=== PATIENT | female | born 1950 | race African-American/Black ===

== ENCOUNTER 2021-03-26 10:53 | Emergency (ER) | payer MEDICARE, SELFPAY ==
[~2021-03-26] VITALS: Ht 167.6 cm; Wt 59.0 kg
[2021-03-26 12:45] LABS: BASOPHILS % 0.3 % (0.0-2.0); HEMOGLOBIN. 10.5 g/dL (12.0-16.0); LYMPHOCYTES % 8.5 % (20.0-50.0); MEAN CORPUSCULAR HEMOGLOBIN 31.1 pg (28.0-32.0); MEAN CORPUSCULAR VOLUME 94.8 fL (81.0-99.0); MEAN PLATELET VOLUME 7.4 fl (7.4-10.4); MONOCYTES % 10.3 % (2.0-8.0); NEUTROPHILS % 80.9 % (40.0-76.0); PLATELET 366 x1000/uL (130-400); RED BLOOD CELL COUNT 3.38 mill/uL (4.2-5.4); RED CELL DISTRIBUTION WIDTH 18.6 % (11.6-14.6)
[2021-03-26 12:49] LABS: CHLORIDE 87 mEq/L (98-107)
[2021-03-26 13:18] VITALS: BP 99/47
== END 2021-03-26 14:07 | disposition home or self-care (01) ==
LOC: ER 10:53
DX: Z01.812 Encounter for preprocedural laboratory examination (principal); D64.9 Anemia, unspecified; R73.9 Hyperglycemia, unspecified; E87.1 Hypo-osmolality and hyponatremia
CPT/HCPCS: 36415; 80053; 85025; 99283